=== PATIENT | male | born 2000 | race Caucasian/White ===

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

== ENCOUNTER 2021-08-29 14:40 | Emergency (ER) | payer BC, SELFPAY ==
[2021-08-29 14:41] VITALS: BP 118/76; PULSE 89; RESP 18; TEMP 36.3; O2SAT 93; BMI 19.6
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
[2021-08-29 15:33] VITALS: O2SAT 100
== END 2021-08-29 16:04 | disposition home or self-care (01) ==
LOC: ED 15:13
PROVIDERS: Emergency Provider Emergency Medicine; Visit Provider Emergency Medicine
DX: S06.0X0A Concussion without loss of consciousness, initial encounter (principal); V89.2XXA Person injured in unspecified motor-vehicle accident, traffic, initial encounter
CPT/HCPCS: 99283

== ENCOUNTER 2023-05-04 16:24 | Emergency (ER) | payer BC, SELFPAY ==
[2023-05-04 16:25] VITALS: BP 115/70; PULSE 73; RESP 15; TEMP 36.5; O2SAT 98; BMI 19.6
--- NOTE | 2023-05-04 16:28 | RAD_ITS ---
STUDY: X-RAY - LEFT ANKLE REASON FOR EXAM: Male, 22 years old. INJURY TECHNIQUE: 3 view(s) of the ankle. COMPARISON: None. FINDINGS: Normal visualized distal tibia and fibula. Normal medial and lateral malleoli. Normal tibiotalar articulation and ankle mortise. Normal visualized talus and calcaneus. The visualized subtalar, talonavicular, calcaneocuboid and tarsal articulations are normal. Lateral soft tissue swelling consistent with ligamentous injury. RAD/Ankle min 3 Views IMPRESSION: 1. No acute fracture or dislocation. 2. Lateral soft tissue swelling consistent with ligamentous injury. Electronically Signed: Dequan Gipson MD at 16:45 EST ,
--- NOTE | 2023-05-04 16:55 | EDS_ITS ---
HPI History of Present Illness HPI Narrative: Patient presents with left ankle injury that occurred last night. Patient states he was playing volleyball and inverted his ankle. Patient describes the pain as aching. Patient states it becomes sharp with movement. Patient admits to some tingling into his toes. Patient denies any weakness. Patient denies any head injury or loss of consciousness. Patient denies any other injuries. Chief Complaint: Lower Extremity Injury Informant: patient Occured/Mechanism Mechanism/Context: Yes fall Comment: Inversion injury Onset/Context/Timing Onset: Yesterday Context: Sudden Onset Timing: Continuous Quality of Pain: Aching Worsened by: movement Relieved by: Nothing Associated Symptoms Associated Symptoms: Positive for Parasthesia; Negative for Weakness or Loss of Funtion PFSH PFSH Home Medications NK 08/29/21 [History Last Taken Unknown] Allergy/AdvReac Type Severity Reaction Status Date / Time clindamycin Allergy PT UNSURE Verified 05/04/23 16:27 OF REACTION Surgical History (Updated 05/04/23 @ 16:[address] Walker Swenson DO) Hx of cervical spinal arthrodesis Social History Smoking Status: Never smoker ROS ROS ED Constitutional Constitutional ED: Denies chills or fever(s) Eyes Eyes: Denies blurry vision or change in vision ENT ENT ED: Denies rhinorrhea or sore throat Cardiovascular Cardiovascular: Denies chest pain or palpitations Respiratory/Chest Respiratory/Chest: Denies cough or dyspnea Gastrointestinal Gastrointestinal: Denies nausea or vomiting Genitourinary Genitourinary ED: Denies dysuria or hematuria Musculoskeletal Musculoskeletal: Denies back pain or neck pain Integumentary Denies abscess or rash Neurologic Neurologic: Denies headache(s) or weakness Allergic/Immunologic Allergic/Immunologic ED: Denies mouth swelling or urticaria EXAM Physical Exam Const Vital Signs: 05/04/23 16:25 Temperature 97.7 F L Temperature Source Temporal Pulse Rate 73 Respiratory Rate 15 Blood Pressure 115/70 Blood Pressure Mean 85 Pulse Ox 98 Oxygen Delivery Method Room Air Positive well nourished and well developed General Appearance ED: well developed and NAD HEENT Reports moist mucous membranes Neck full ROM and supple Extremity Extremity Narrative: There is tenderness and edema over the lateral aspect of the left ankle. There is no obvious deformity noted. There is no bony crepitance or step-off noted. There is no tenderness over the proximal fibula. There is no tenderness over the fifth metatarsal. Pedal pulses are equal bilaterally. Sensation was intact to light touch in all digits. Capillary refill was less than 2 seconds in all digits. Neuro oriented x3, CN's II-XII intact bilaterally, moves all extremities and no sensory deficits noted Sensorium / Orientation: alert Motor Exam: strength 5/5 throughout Psych mental status grossly normal MDM MDM MDM Narrative Medical decision making narrative: Differential diagnosis includes sprain, fracture, and contusion. X-rays of the left ankle will be obtained to assess for fracture. Radiography Diagnostic Testing: Clinical Impression(s) from Imaging Studies Ankle X-Ray 05/04/23 16:28 IMPRESSION: 1. No acute fracture or dislocation. 2. Lateral soft tissue swelling consistent with ligamentous injury. Electronically Signed: Dequan Gipson MD at 16:45 EST , X-rays of the left ankle were obtained. There are 3 views. On my independent interpretation, there is no acute fracture or dislocation. There is lateral soft tissue swelling noted. Radiologist also interpreted the x-rays and agrees. Treatment and Re-Evaluation Narrative: Patient was advised of his findings. Patient was instructed to ice and elevate the left ankle. Patient was instructed to continue wearing his ankle brace and use his crutches as needed. Patient was instructed to weight-bear as tolerated. Patient was instructed to follow-up with his primary care physician in 5 to 7 days. Patient was instructed take Tylenol or ibuprofen as needed for pain. Patient understood and was agreeable with the plan. All questions were answered. Discharge Plan Triage Chief Complaint: Lower Extremity Injury ED Provider: Walker Swenson Dx/Rx/DC Orders Clinical Impression: Fall, Left ankle sprain Instructions: ED Ankle Sprain (Adult) Prescriptions: No Action NK Stand Alone Forms: ED Work / School Excuse Primary Care Provider: Care Physician,No Primary Referrals: Walker Guerrero MD [Med Staff - Assistant Manager Of Operations] - 5-7 Days Care Physician,No Primary [Primary Care Provider] - Activity Restrictions/Additional Instructions: Continue wearing her brace as needed. Use crutches to help with weightbearing. You can bear as much weight on your ankle as you can tolerate. Take Tylenol or ibuprofen as needed for pain. Ice your left ankle 4-5 times per day for 20 minutes. Keep your ankle elevated while you are sitting. Disposition Disposition: Home, Self Care
[2023-05-04 17:06] VITALS: BP 134/69; PULSE 71; RESP 16; O2SAT 98
== END 2023-05-04 17:08 | disposition home or self-care (01) ==
LOC: ED 17:06
PROVIDERS: Emergency Provider Emergency Medicine; PCP Family Medicine; Visit Provider Emergency Medicine
DX: S93.402A Sprain of unspecified ligament of left ankle, initial encounter (principal); W19.XXXA Unspecified fall, initial encounter; Y93.68 Activity, volleyball (beach) (court)
CPT/HCPCS: 73610; 99282